=== PATIENT | female | born 1975 | race Two or more races ===

== ENCOUNTER 2023-09-19 10:30 | Day surgery (SDC) | payer OTHER ==
[~2023-09-19 10:30] MED LIST: TRAM1TAB98 PO
== END 2023-09-19 20:00 | disposition home or self-care (01) ==
LOC: CIR.AMB 10:30
PROVIDERS: ATTEND Colon & Rectal Surgery
DX: K64.2 Third degree hemorrhoids (principal); K64.4 Residual hemorrhoidal skin tags; K62.2 Anal prolapse; Z20.822 Contact with and (suspected) exposure to COVID-19; K64.8 Other hemorrhoids